=== PATIENT | female | born 1995 | race Caucasian/White ===

== ENCOUNTER 2023-08-31 13:55 | Observation (INO) | payer MEDICAID, OTHER ==
[2023-08-31] MEDS ORDERED: PREN1TAB71 OR (15:20)
== END 2023-08-31 15:33 | disposition home or self-care (01) ==
LOC: LDRP 13:55
PROVIDERS: ADMIT Obstetrics & Gynecology; ATTEND Obstetrics & Gynecology
DX: O26.892 Other specified pregnancy related conditions, second trimester (principal); R10.9 Unspecified abdominal pain; Z91.040 Latex allergy status; Z3A.24 24 weeks gestation of pregnancy
CPT/HCPCS: 59025; 81002; G0378

== ENCOUNTER 2023-09-12 22:22 | Observation (INO) | payer MEDICAID ==
[~2023-09-12] VITALS: Ht 162.6 cm; Wt 73.9 kg
[~2023-09-12 22:22] MED LIST: PREN1TAB71 OR
== END 2023-09-13 01:32 | disposition home or self-care (01) ==
LOC: LDRP 22:22
PROVIDERS: ADMIT Obstetrics & Gynecology; ATTEND Obstetrics & Gynecology
DX: O26.892 Other specified pregnancy related conditions, second trimester (principal); R22.0 Localized swelling, mass and lump, head; Z3A.26 26 weeks gestation of pregnancy; Y04.2XXA Assault by strike against or bumped into by another person, initial encounter; Y93.89 Activity, other specified; Y92.89 Other specified places as the place of occurrence of the external cause; Y99.8 Other external cause status
CPT/HCPCS: 59025; 76815; 81002; 94760; G0378